=== PATIENT | female | born 1995 | race Caucasian/White ===

== ENCOUNTER 2017-01-05 20:52 | Emergency (ER) | payer MEDICAID ==
[2017-01-05 21:05] VITALS: BP 132/89
--- NOTE | 2017-01-05 21:41 | EDM.PDOC ---
ED HPI GENERAL MEDICAL PROBLEM - General Chief Complaint: SENIOR ADMINISTRATIVE ASSISTANT Problem Stated Complaint: POSSIBLE MISCARRIAGE Time Seen by Provider: 01/05/17 21:20 Source of Information: Reports: Patient History Limitations: Reports: No Limitations - History of Present Illness INITIAL COMMENTS - FREE TEXT/NARRATIVE: Vaginal bleeding in : This is a 21-year-old 3 para 2 with last menstrual cycle at 10/03/16 she reports she is 14 weeks . Last OB exam 2 weeks ago. Today she reports felt very weird, dizzy, had a pounding headache lasting approximately 30 seconds to 1 minute. When this resolved she developed vaginal bleeding and passed a few clots. This occurred at 8:16 PM this evening,. She called her sister to come and pick her up and bring her to the emergency room. Mrs. Wheat reports 2 prior ultrasounds during this for spotting, one ultrasound showed small fluid pocket next to fetus, second ultrasound no comment was made on fluid. The ultrasound on 12/24/2016 showed a 12 week gestation with a heart rate of 150 Mrs. Mcgowan lives with her and 2 children ages 3 years and 1 year. They are farmers. General good health no chronic health conditions noted Onset: Sudden Onset Date: 01/05/17 Onset Time: 20:16 Duration: Hour(s): Location: Reports: Abdomen Quality: Reports: Other (Denies any cramping or pelvic pressure at this time) Improves with: Reports: None Worsens with: Reports: None Context: Reports: Other (Vaginal bleeding in ) Associated Symptoms: Reports: Other (Recent treatment for UTI) - Related Data Allergies Allergy/AdvReac Type Severity Reaction Status Date / Time amoxicillin [Amoxicillin] Allergy Rash Verified 01/05/17 21:03 Home Meds: Home Meds Cetirizine [ZyrTEC] 10 mg PO DAILY 03/23/13 [History] Ibuprofen [Advil Liqui-Gels] 600 mg PO Q6H PRN 03/23/13 [History] Vit with Ca/FA/Iron [ Plus Iron] 1 tab PO DAILY 01/05/17 [ History] Past Medical History - Past Health History Medical/Surgical History: Denies Medical/Surgical History Gastrointestinal History: Reports: Cholelithiasis SENIOR ADMINISTRATIVE ASSISTANT History: Reports: ( 3 para 2 last menstrual cycle 2016 currently 12 weeks gestation) LMP (Approximate): - Past Surgical History GI Surgical History: Reports: Cholecystectomy Social & Family History - Tobacco Use Smoking Status *Q: Never Smoker Second Hand Smoke Exposure: Yes - Alcohol Use Days Per Week of Alcohol Use: 0 - Recreational Drug Use Recreational Drug Use: No - Living Situation & Occupation Living situation: Reports: (Lives with and 2 children ages 3 year and 1 year, they are farmers .) Occupation: Employed ([employer]) ED ROS GENERAL - Review of Systems Review Of Systems: See Below Constitutional: Reports: Other (Weakness) HEENT: Reports: No Symptoms Respiratory: Reports: No Symptoms Cardiovascular: Reports: No Symptoms Endocrine: Reports: No Symptoms GI/Abdominal: Reports: No Symptoms : Reports: Other (Vaginal bleeding in ) Musculoskeletal: Reports: No Symptoms Skin: Reports: No Symptoms Neurological: Reports: No Symptoms Psychiatric: Reports: No Symptoms Hematologic/Lymphatic: Reports: No Symptoms Immunologic: Reports: No Symptoms ED EXAM, GI/ABD - Physical Exam Exam: See Below Exam Limited By: No Limitations Eyes: Bilateral: Normal Appearance Ears: Normal External Exam Nose: Normal Inspection Throat/Mouth: Normal Inspection Head: Atraumatic, Normocephalic Neck: Normal Inspection, Supple, Non-Tender Respiratory/Chest: No Respiratory Distress, Lungs Clear, Normal Breath Sounds, No Accessory Muscle Use, Chest Non-Tender Cardiovascular: Regular Rate, Rhythm, No Murmur GI/Abdominal Exam: Normal Bowel Sounds, Soft, Non-Tender, Other () (Female) Exam: Vaginal Bleeding (Dark bloody discharge noted at the introitus.) Back Exam: Normal Inspection, Full Range of Motion Extremities: Normal Inspection, Normal Range of Motion, Non-Tender, No Pedal Edema, Normal Capillary Refill Neurological: Alert, Oriented, Normal Cognition, Normal Gait, No Motor/Sensory Deficits Psychiatric: Normal Affect, Normal Mood Skin Exam: Warm, Dry, Intact, Normal Color, No Rash Lymphatic: No Adenopathy Course - Vital Signs Last Recorded V/S: Last Vital Signs Temp 36.8 C 01/05/17 20:59 Pulse 97 01/05/17 20:59 Resp 16 01/05/17 20:59 BP 132/89 01/05/17 20:59 Pulse Ox 98 01/05/17 20:59 - Orders/Labs/Meds Orders: Active Orders 24 hr Category Date Time Status OB 1st Tri Sgl 1st Gest [US] Stat Exams 01/05/17 21:49 Taken Sodium Chloride 0.9% [Normal Saline] 1,000 ml Med 01/05/17 22:00 Active IV ASDIRECTED Medication Orders Sodium Chloride (Normal Saline) 1,000 mls @ 999 mls/hr IV ASDIRECTED SAMMI Labs: Laboratory Tests 01/05/17 01/05/17 01/05/17 Range/Units 21:48 21:57 22:23 WBC 12.4 H (4.5-11.0) K/uL RBC 4.23 (3.30-5.50) M/uL Hgb 12.1 (12.0-15.0) g/dL Hct 35.2 L (36.0-48.0) % MCV 83 (80-98) fL MCH 29 (27-31) pg MCHC 34 (32-36) % Plt Count 247 (150-400) K/uL Neut % (Auto) 72 H (36-66) % Lymph % (Auto) 18 L (24-44) % [place] % (Auto) 8 H (2-6) % Eos % (Auto) 2 (2-4) % Baso % (Auto) 0 (0-1) % Sodium 137 L (140-148) mmol/L Potassium 3.4 L (3.6-5.2) mmol/L Chloride 101 (100-108) mmol/L Carbon Dioxide 24 (21-32) mmol/L Anion Gap 15.4 H (5.0-14.0) mmol/L BUN 10 (7-18) mg/dL Creatinine 0.6 (0.6-1.0) mg/dL Est Cr Clr Drug Dosing 132.34 mL/min Estimated GFR (MDRD) > 60 (>60) Glucose 106 (74-106) mg/dL Calcium 9.0 (8.5-10.1) mg/dL Total Bilirubin 0.4 (0.2-1.0) mg/dL AST 15 D (15-37) U/L ALT 17 D (12-78) U/L Alkaline Phosphatase 92 (46-116) U/L Total Protein 7.5 (6.4-8.2) g/dL Albumin 3.2 L (3.4-5.0) g/dL Globulin 4.3 H (2.3-3.5) g/dL Albumin/Globulin Ratio 0.7 L (1.2-2.2) Urine Color Red Urine Appearance Cloudy Urine pH 6.0 (4.5-8.0) Ur Specific [place] 1.015 (1.008-1.030) Urine Protein 500 H (NEGATIVE) mg/dL Urine Glucose (UA) Normal (NEGATIVE) mg/dL Urine Ketones Negative (NEGATIVE) mg/dL Urine Occult Blood Large (NEGATIVE) Urine Nitrite Negative (NEGATIVE) Urine Bilirubin Negative (NEGATIVE) Urine Urobilinogen Normal (NORMAL) mg/dL Ur Leukocyte Esterase Small (NEGATIVE) Urine RBC Packed H (0-5) Urine WBC 5-10 H (0-5) Ur Epithelial Cells Few Amorphous Sediment Few Urine Bacteria Few Urine Mucus Few Meds: Medications Generic Name Dose Route Start Last Admin Trade Name Freq PRN Reason Stop Dose Admin Sodium Chloride 1,000 mls @ 999 mls/hr 01/05/17 22:00 Normal Saline IV ASDIRECTED SAMMI - Radiology Interpretation Free Text/Narrative:: OB ultrasound limited; Findings; sonographic imaging demonstrates a single intrauterine gestation. In the right ovary cannot be visualized. The left ovary measures 3.2 by 1.81.8 cm. No significant pelvic ascites is seen. There is a hypoechoic focus along the inferior left margin of the placenta measuring 8.421.4 cm which may represent a hematoma from a placental abruption heart tones 156 orientation cephalic placenta anterior amniotic fluid subjectively normal cervix not well visualized the crown-rump measures measurement is 8.4 cm with estimated gestational age of 14 weeks 3 days Impression There is a hypoechoic focus along the inferior left marginal placenta measuring 8.421.4 cm which may represent a hematoma from a placental abruption close clinical follow-up is recommended Reviewed and given a copy of report to and Mrs. Wheat advised to bring report to her next SENIOR ADMINISTRATIVE ASSISTANT appointment Follow up with SENIOR ADMINISTRATIVE ASSISTANT next week. - Re-Assessments/Exams Free Text/Narrative Re-Assessment/Exam: 01/05/17 21:47 Orders for IV fluids -ultrasound OB the second trimester -labs CBC and BMP and urine -will await the results, at this time patient denies any pain and sister are at her side 01/05/17 22:25 OB ultrasound shows a viable fetus at 14 weeks with a heart rate of 156, activity is noted, placenta is on the right side, large bleed is noted to the left side of uterus measuring at least 9 cm in length and is crescent shaped so this was not is not available at this time. Cervix appears intact no bulging or funneling is noted. plan to consult with SENIOR ADMINISTRATIVE ASSISTANT for further recommendations of care. Departure - Departure Time of Disposition: 22:51 Disposition: Home, Self-Care 01 Condition: Good Clinical Impression: Placental abruption in second trimester - Discharge Information Referrals: PCP,None [Primary Care Provider] - Forms: ED Department Discharge Care Plan Goals: Placental abruption, vaginal bleeding in second trimester -Consulted with SENIOR ADMINISTRATIVE ASSISTANT medical doctor -Recommends bedrest, pelvic rest, and will need to follow-up with SENIOR ADMINISTRATIVE ASSISTANT early next week -discussed with . Mrs. Wheat, the seriousness of a placental abruption, she will need to very limited activities, advised no bending, lifting, running, pushing or pulling. Advised no riding tractors, ATVs, prolonged driving, shopping or auctions. -Drink plenty of fluids, eat healthy. Plan plan to see her SENIOR ADMINISTRATIVE ASSISTANT next week, if bleeding should increase, sudden gush of fluids, dizziness, fever chills, or any concerns will need to report to ER for evaluation. . Mrs. Wheat and her sister agree with plan of care and verbalized understanding - Problem List & Annotations (1) Placental abruption in second trimester SNOMED Code(s): 545973814 Code(s): O45.92 - PREMATURE SEPARATION OF PLACENTA, UNSP, SECOND TRIMESTER Status: Acute Priority: High Current Visit: Yes - Problem List Review Problem List Initiated/Reviewed/Updated: Yes - My Orders Last 24 Hours: My Active Orders 01/05/17 21:49 OB 1st Tri Sgl 1st Gest [US] Stat 01/05/17 22:00 Sodium Chloride 0.9% [Normal Saline] 1,000 ml IV ASDIRECTED - Assessment/Plan Last 24 Hours: My Active Orders 01/05/17 21:49 OB 1st Tri Sgl 1st Gest [US] Stat 01/05/17 22:00 Sodium Chloride 0.9% [Normal Saline] 1,000 ml IV ASDIRECTED Assessment:: Placental abruption, vaginal bleeding in second trimester -Consulted with SENIOR ADMINISTRATIVE ASSISTANT medical doctor -Recommends bedrest, pelvic rest, and will need to follow-up with SENIOR ADMINISTRATIVE ASSISTANT early next week -discussed with Mr. Mrs. Wheat, the seriousness of a placental abruption, she will need to very limited activities, advised no bending, lifting, running, pushing or pulling. Advised no riding tractors, ATVs, prolonged driving, shopping or auctions. -Drink plenty of fluids, eat healthy. Plan plan to see her SENIOR ADMINISTRATIVE ASSISTANT next week, if bleeding should increase, sudden gush of fluids, dizziness, fever chills, or any concerns will need to report to ER for evaluation. Mr. Mrs. Wheat and her sister agree with plan of care and verbalized understanding
[2017-01-05] MEDS ORDERED: Sodium Chloride 0.9% 1,000 ML IV SCH (22:00)
== END 2017-01-05 23:26 | disposition home or self-care (01) ==
LOC: JP.ED 20:52
DX: O45.92 Premature separation of placenta, unspecified, second trimester (principal); Z3A.14 14 weeks gestation of pregnancy
CPT/HCPCS: 36415; 76801; 80053; 81001; 85025; 99284-25

== ENCOUNTER 2022-04-30 21:59 | Emergency (ER) | payer MEDICAID ==
[2022-04-30 23:15] VITALS: BP 145/91; PULSE 81
== END 2022-04-30 23:14 | disposition home or self-care (01) ==
LOC: JP.ED 21:59
DX: G51.0 Bell's palsy (principal); Z88.0 Allergy status to penicillin
CPT/HCPCS: 99284